=== PATIENT | male | born 1955 | race Caucasian/White ===

== ENCOUNTER 2016-05-18 11:50 | Outpatient (CLI) ==
[2015-05-11 23:10] VITALS: BMI 34.4
[2016-05-18 12:25] LABS: PROTHROMBIN TIME 21.6 SEC (9.3-11.0)
== END 2016-05-18 11:51 | disposition home or self-care (01) ==
LOC: NONPT 11:50
PROVIDERS: ATTEND Family Medicine
DX: Z51.81 Encounter for therapeutic drug level monitoring (principal); Z79.01 Long term (current) use of anticoagulants; Z79.82 Long term (current) use of aspirin; Z79.84 Long term (current) use of oral hypoglycemic drugs
CPT/HCPCS: 85610

== ENCOUNTER 2016-05-25 11:41 | Outpatient (CLI) ==
[2015-05-11 23:10] VITALS: BMI 34.4
[2016-05-25 13:25] LABS: PROTHROMBIN TIME 33.6 SEC (9.3-11.0)
== END 2016-05-25 11:42 | disposition home or self-care (01) ==
LOC: NONPT 11:41
PROVIDERS: ATTEND Family Medicine
DX: Z51.81 Encounter for therapeutic drug level monitoring (principal); Z79.01 Long term (current) use of anticoagulants; Z79.84 Long term (current) use of oral hypoglycemic drugs; Z79.82 Long term (current) use of aspirin
CPT/HCPCS: 85610

== ENCOUNTER 2016-06-07 11:33 | Outpatient (CLI) ==
[2015-05-11 23:10] VITALS: BMI 34.4
[2016-06-07 12:00] LABS: PROTHROMBIN TIME 22.9 SEC (9.3-11.0)
== END 2016-06-07 11:34 | disposition home or self-care (01) ==
LOC: LAB 11:33
PROVIDERS: ATTEND Family Medicine
DX: Z51.81 Encounter for therapeutic drug level monitoring (principal); Z79.01 Long term (current) use of anticoagulants; Z79.84 Long term (current) use of oral hypoglycemic drugs; Z79.82 Long term (current) use of aspirin
CPT/HCPCS: 36415; 85610

== ENCOUNTER 2016-06-21 13:49 | Outpatient (CLI) ==
[2015-05-11 23:10] VITALS: BMI 34.4
[2016-06-21 14:15] LABS: PROTHROMBIN TIME 19.9 SEC (9.3-11.0)
== END 2016-06-21 13:50 | disposition home or self-care (01) ==
LOC: NONPT 13:49
PROVIDERS: ATTEND Family Medicine
DX: Z51.81 Encounter for therapeutic drug level monitoring (principal); Z79.01 Long term (current) use of anticoagulants; Z79.82 Long term (current) use of aspirin; Z79.84 Long term (current) use of oral hypoglycemic drugs
CPT/HCPCS: 85610

== ENCOUNTER 2016-06-28 19:58 | Outpatient (CLI) ==
[2015-05-11 23:10] VITALS: BMI 34.4
[2016-06-28 20:36] LABS: PROTHROMBIN TIME 29.5 SEC (9.3-11.0)
== END 2016-06-28 19:59 | disposition home or self-care (01) ==
LOC: NONPT 19:58
PROVIDERS: ATTEND Family Medicine
DX: Z51.81 Encounter for therapeutic drug level monitoring (principal); E11.621 Type 2 diabetes mellitus with foot ulcer
CPT/HCPCS: 85610

== ENCOUNTER 2016-07-29 13:28 | Outpatient (CLI) ==
[2015-05-11 23:10] VITALS: BMI 34.4
[2016-07-29 14:04] LABS: ALBUMIN 3.1 g/dL (3.4-5.0); ALBUMIN/GLOBULIN RATIO 0.78; ANION GAP 10.6; BILIRUBIN,TOTAL 0.24 mg/dL (0.00-1.20); BUN/CREATININE RATIO 12.74; CREATININE 1.02 mg/dL (0.60-1.10); POTASSIUM 5.6 mmol/L (3.5-5.1); TOTAL PROTEIN 7.1 g/dL (5.8-8.1)
[2016-07-29 14:16] LABS: PROTHROMBIN TIME 32.2 SEC (9.3-11.0)
== END 2016-07-29 13:29 | disposition home or self-care (01) ==
LOC: NONPT 13:28
PROVIDERS: ATTEND Family Medicine
DX: E11.51 Type 2 diabetes mellitus with diabetic peripheral angiopathy without gangrene (principal); J44.9 Chronic obstructive pulmonary disease, unspecified; I10 Essential (primary) hypertension; F17.210 Nicotine dependence, cigarettes, uncomplicated; Z91.81 History of falling; Z79.84 Long term (current) use of oral hypoglycemic drugs; E11.621 Type 2 diabetes mellitus with foot ulcer; L97.413 Non-pressure chronic ulcer of right heel and midfoot with necrosis of muscle
CPT/HCPCS: 80053; 83036; 85610

== ENCOUNTER 2016-08-05 12:10 | Outpatient (CLI) ==
[2015-05-11 23:10] VITALS: BMI 34.4
[2016-08-05 12:33] LABS: ANION GAP 11.9; BUN/CREATININE RATIO 8.47; CREATININE 1.18 mg/dL (0.60-1.10); POTASSIUM 4.9 mmol/L (3.5-5.1)
[2016-08-05 12:35] LABS: PROTHROMBIN TIME 23.6 SEC (9.3-11.0)
== END 2016-08-05 12:11 | disposition home or self-care (01) ==
LOC: LAB 12:10
PROVIDERS: ATTEND Family Medicine
DX: Z79.84 Long term (current) use of oral hypoglycemic drugs (principal); Z79.01 Long term (current) use of anticoagulants; Z79.82 Long term (current) use of aspirin; E11.621 Type 2 diabetes mellitus with foot ulcer; E11.51 Type 2 diabetes mellitus with diabetic peripheral angiopathy without gangrene; J44.9 Chronic obstructive pulmonary disease, unspecified
CPT/HCPCS: 36415; 80048; 85610

== ENCOUNTER 2016-08-12 16:08 | Outpatient (CLI) ==
[2015-05-11 23:10] VITALS: BMI 34.4
[2016-08-12 16:30] LABS: ANION GAP 12.4; BUN/CREATININE RATIO 13.15; CALCIUM 8.2 mg/dL (8.2-10.2); CREATININE 1.52 mg/dL (0.60-1.10); POTASSIUM 5.4 mmol/L (3.5-5.1)
== END 2016-08-12 16:09 | disposition home or self-care (01) ==
LOC: NONPT 16:08
PROVIDERS: ATTEND Family Medicine
DX: Z51.81 Encounter for therapeutic drug level monitoring (principal); Z79.01 Long term (current) use of anticoagulants; Z79.84 Long term (current) use of oral hypoglycemic drugs; Z79.82 Long term (current) use of aspirin; E11.621 Type 2 diabetes mellitus with foot ulcer; E11.51 Type 2 diabetes mellitus with diabetic peripheral angiopathy without gangrene
CPT/HCPCS: 80048

== ENCOUNTER 2016-08-23 14:19 | Outpatient (CLI) ==
[2015-05-11 23:10] VITALS: BMI 34.4
[2016-08-23 14:52] LABS: PROTHROMBIN TIME 31.7 SEC (9.3-11.0)
== END 2016-08-23 14:20 | disposition home or self-care (01) ==
LOC: NONPT 14:19
PROVIDERS: ATTEND Family Medicine
DX: Z51.81 Encounter for therapeutic drug level monitoring (principal); Z79.01 Long term (current) use of anticoagulants; E11.621 Type 2 diabetes mellitus with foot ulcer; L97.413 Non-pressure chronic ulcer of right heel and midfoot with necrosis of muscle; E11.51 Type 2 diabetes mellitus with diabetic peripheral angiopathy without gangrene
CPT/HCPCS: 85610

== ENCOUNTER 2016-08-25 17:32 | Outpatient (CLI) ==
[2015-05-11 23:10] VITALS: BMI 34.4
[2016-08-25 18:25] LABS: PROTHROMBIN TIME 19.7 SEC (9.3-11.0)
[2016-08-25 18:30] LABS: ANION GAP 13.2; BUN/CREATININE RATIO 11.71; CALCIUM 7.7 mg/dL (8.2-10.2); CREATININE 1.28 mg/dL (0.60-1.10); POTASSIUM 5.2 mmol/L (3.5-5.1)
== END 2016-08-25 17:33 | disposition home or self-care (01) ==
LOC: NONPT 17:32
PROVIDERS: ATTEND Family Medicine
DX: Z51.81 Encounter for therapeutic drug level monitoring (principal); Z79.01 Long term (current) use of anticoagulants; I10 Essential (primary) hypertension
CPT/HCPCS: 80048; 85610

== ENCOUNTER 2016-09-03 15:24 | Outpatient (CLI) ==
[2015-05-11 23:10] VITALS: BMI 34.4
[2016-09-03 15:50] LABS: ANION GAP 12.8; BUN/CREATININE RATIO 12.35; CALCIUM 8.1 mg/dL (8.2-10.2); CREATININE 1.78 mg/dL (0.60-1.10); POTASSIUM 5.8 mmol/L (3.5-5.1)
== END 2016-09-03 15:25 | disposition home or self-care (01) ==
LOC: NONPT 15:24
PROVIDERS: ATTEND Family Medicine
DX: I10 Essential (primary) hypertension (principal)
CPT/HCPCS: 80048

== ENCOUNTER 2016-09-24 13:11 | Outpatient (CLI) | payer OTHER ==
[2015-05-11 23:10] VITALS: BMI 34.4
[2016-09-24 14:09] LABS: PROTHROMBIN TIME 13.2 SEC (9.3-11.0)
== END 2016-09-24 13:12 | disposition home or self-care (01) ==
LOC: NONPT 13:11
PROVIDERS: ATTEND Family Medicine
DX: Z51.81 Encounter for therapeutic drug level monitoring (principal); Z79.01 Long term (current) use of anticoagulants; I10 Essential (primary) hypertension
CPT/HCPCS: 85610

== ENCOUNTER 2016-11-27 17:04 | Outpatient (CLI) ==
[2015-05-11 23:10] VITALS: BMI 34.4
[2016-11-27 18:24] LABS: IMMATURE RETIC FRACTION 29.6; RETICULOCYTE % 1.6 %
[2016-11-27 19:15] LABS: FERRITIN 14.93 ng/mL (21.81-274.66)
== END 2016-11-27 17:05 | disposition home or self-care (01) ==
LOC: NONPT 17:04
PROVIDERS: ATTEND Family Medicine
DX: L97.413 Non-pressure chronic ulcer of right heel and midfoot with necrosis of muscle (principal); E11.51 Type 2 diabetes mellitus with diabetic peripheral angiopathy without gangrene
CPT/HCPCS: 82607; 82728; 82746; 83540; 83550; 85045

== ENCOUNTER 2016-12-16 11:12 | Outpatient (CLI) ==
[2015-05-11 23:10] VITALS: BMI 34.4
== END 2016-12-16 11:13 | disposition home or self-care (01) ==
LOC: NONPT 11:12
PROVIDERS: ATTEND Family Medicine
DX: Z51.81 Encounter for therapeutic drug level monitoring (principal); Z79.01 Long term (current) use of anticoagulants; L97.413 Non-pressure chronic ulcer of right heel and midfoot with necrosis of muscle; I10 Essential (primary) hypertension
CPT/HCPCS: 85610

== ENCOUNTER 2016-12-30 12:55 | Outpatient (CLI) ==
[2015-05-11 23:10] VITALS: BMI 34.4
[2016-12-30 13:01] LABS: HEMATOCRIT 37.8 % (42.0-52.0); HEMOGLOBIN 12.2 g/dl (14.0-18.0)
== END 2016-12-30 12:56 | disposition home or self-care (01) ==
LOC: NONPT 12:55
PROVIDERS: ATTEND Family Medicine
DX: E11.621 Type 2 diabetes mellitus with foot ulcer (principal); E11.51 Type 2 diabetes mellitus with diabetic peripheral angiopathy without gangrene; J44.9 Chronic obstructive pulmonary disease, unspecified; I10 Essential (primary) hypertension; Z79.84 Long term (current) use of oral hypoglycemic drugs; Z79.82 Long term (current) use of aspirin; Z79.891 Long term (current) use of opiate analgesic
CPT/HCPCS: 83540; 85014; 85018

== ENCOUNTER 2017-01-24 15:28 | Outpatient (CLI) ==
[2015-05-11 23:10] VITALS: BMI 34.4
[2017-01-24 15:35] LABS: BASOPHILS % (AUTO) 0.5 % (0.0-3.0); EOSINOPHILS # (AUTO) 0.2 K/ul (0.0-0.7); EOSINOPHILS % (AUTO) 2.2 % (0.0-7.0); HEMATOCRIT 41.6 % (42.0-52.0); HEMOGLOBIN 13.3 g/dl (14.0-18.0); IMMATURE GRANULOCYTE % (AUTO) 0.3 % (0.0-5.0); LYMPHOCYTES # (AUTO) 2.1 K/uL (0.60-3.4); LYMPHOCYTES % (AUTO) 28.8 (10.0-50.0); MEAN CORPUSCULAR HEMOGLOBIN 28.7 pg (27.0-31.0); MEAN CORPUSCULAR VOLUME 89.7 fl (80.0-94.0); MONOCYTES # (AUTO) 0.6 K/uL (0.4-2.0); MONOCYTES % (AUTO) 8.4 (0-10); NEUTROPHILS # (AUTO) 4.4 K/ul (2.0-6.9); NEUTROPHILS % (AUTO) 59.8; PLATELET COUNT 155 10^3/uL (140-440); RED BLOOD COUNT 4.64 10^6/ul (4.70-6.10); WHITE BLOOD COUNT 7.37 K/ul (4.2-10.2)
[2017-01-24 15:47] LABS: PROTHROMBIN TIME 15.3 SEC (9.3-11.0)
== END 2017-01-24 15:29 | disposition home or self-care (01) ==
LOC: NONPT 15:28
PROVIDERS: ATTEND Family Medicine
DX: Z51.81 Encounter for therapeutic drug level monitoring (principal); Z79.01 Long term (current) use of anticoagulants; I10 Essential (primary) hypertension; D64.9 Anemia, unspecified
CPT/HCPCS: 83540; 85025; 85610

== ENCOUNTER 2017-01-24 15:35 | Outpatient (CLI) ==
[2015-05-11 23:10] VITALS: BMI 34.4
== END 2017-01-24 15:36 | disposition home or self-care (01) ==
LOC: NONPT 15:35
PROVIDERS: ATTEND Family Medicine
DX: Z51.81 Encounter for therapeutic drug level monitoring (principal); Z79.01 Long term (current) use of anticoagulants

== ENCOUNTER 2017-01-26 17:28 | Outpatient (CLI) | payer OTHER ==
[2015-05-11 23:10] VITALS: BMI 34.4
[2017-01-26 17:49] LABS: PROTHROMBIN TIME 18.9 SEC (9.3-11.0)
== END 2017-01-26 17:29 | disposition home or self-care (01) ==
LOC: NONPT 17:28
PROVIDERS: ATTEND Family Medicine
DX: Z51.81 Encounter for therapeutic drug level monitoring (principal); Z79.01 Long term (current) use of anticoagulants
CPT/HCPCS: 85610

== ENCOUNTER 2017-02-03 13:32 | Outpatient (CLI) ==
[2015-05-11 23:10] VITALS: BMI 34.4
[2017-02-03 14:08] LABS: PROTHROMBIN TIME 20.5 SEC (9.3-11.0)
== END 2017-02-03 13:33 | disposition home or self-care (01) ==
LOC: NONPT 13:32
PROVIDERS: ATTEND Family Medicine
DX: Z51.81 Encounter for therapeutic drug level monitoring (principal); Z79.01 Long term (current) use of anticoagulants
CPT/HCPCS: 85610

== ENCOUNTER 2017-02-17 16:09 | Outpatient (CLI) ==
[2015-05-11 23:10] VITALS: BMI 34.4
[2017-02-17 16:47] LABS: PROTHROMBIN TIME 22.9 SEC (9.3-11.0)
== END 2017-02-17 16:10 | disposition home or self-care (01) ==
LOC: NONPT 16:09
PROVIDERS: ATTEND Family Medicine
DX: Z51.81 Encounter for therapeutic drug level monitoring (principal); Z79.01 Long term (current) use of anticoagulants; E11.621 Type 2 diabetes mellitus with foot ulcer; I10 Essential (primary) hypertension; E11.51 Type 2 diabetes mellitus with diabetic peripheral angiopathy without gangrene
CPT/HCPCS: 85610

== ENCOUNTER 2017-04-29 15:57 | Outpatient (CLI) ==
[2017-03-21 15:59] VITALS: BMI 25.8
[2017-04-29 16:09] LABS: BASOPHILS % (AUTO) 0.4 % (0.0-3.0); EOSINOPHILS # (AUTO) 0.2 K/ul (0.0-0.7); EOSINOPHILS % (AUTO) 2.2 % (0.0-7.0); HEMATOCRIT 42.8 % (42.0-52.0); HEMOGLOBIN 15.3 g/dl (14.0-18.0); IMMATURE GRANULOCYTE % (AUTO) 0.6 % (0.0-5.0); LYMPHOCYTES # (AUTO) 1.8 K/uL (0.60-3.4); LYMPHOCYTES % (AUTO) 18.5 (10.0-50.0); MEAN CORPUSCULAR HEMOGLOBIN 30.7 pg (27.0-31.0); MEAN CORPUSCULAR HGB CONC 35.7 (31.8-35.4); MEAN CORPUSCULAR VOLUME 85.9 fl (80.0-94.0); MONOCYTES # (AUTO) 0.7 K/uL (0.4-2.0); MONOCYTES % (AUTO) 6.9 (0-10); NEUTROPHILS # (AUTO) 7.1 K/ul (2.0-6.9); NEUTROPHILS % (AUTO) 71.4; PLATELET COUNT 189 10^3/uL (140-440); RED BLOOD COUNT 4.98 10^6/ul (4.70-6.10); WHITE BLOOD COUNT 9.93 K/ul (4.2-10.2)
[2017-04-29 16:11] LABS: BILIRUBIN,URINE Negative (NEGATIVE); KETONES,URINE Negative (NEGATIVE); LEUKOCYTE ESTERASE ,URINE Negative (NEGATIVE); NITRITE,URINE Negative (NEGATIVE); PROTEIN,URINE Negative (NEGATIVE); URINE, BLOOD Negative (NEGATIVE)
[2017-04-29 16:28] LABS: ANION GAP 17.3; BUN/CREATININE RATIO 15.94; CALCIUM 9.4 mg/dL (8.2-10.2); CREATININE 1.38 mg/dL (0.60-1.10)
[2017-04-29 16:38] LABS: POTASSIUM 8.3 mmol/L (3.5-5.1)
[2017-04-29 16:58] LABS: ADD URINE MICROSCOPIC NO
== END 2017-04-29 15:58 | disposition home or self-care (01) ==
LOC: NONPT 15:57
PROVIDERS: ATTEND Family Medicine
DX: E11.621 Type 2 diabetes mellitus with foot ulcer (principal); L97.413 Non-pressure chronic ulcer of right heel and midfoot with necrosis of muscle
CPT/HCPCS: 80048; 81001; 85025

== ENCOUNTER 2017-05-02 16:20 | Outpatient (CLI) ==
[2017-03-21 15:59] VITALS: BMI 25.8
[2017-05-02 16:30] LABS: BASOPHILS % (AUTO) 0.5 % (0.0-3.0); EOSINOPHILS # (AUTO) 0.3 K/ul (0.0-0.7); EOSINOPHILS % (AUTO) 3.2 % (0.0-7.0); HEMATOCRIT 40.3 % (42.0-52.0); HEMOGLOBIN 14.1 g/dl (14.0-18.0); IMMATURE GRANULOCYTE % (AUTO) 0.3 % (0.0-5.0); LYMPHOCYTES # (AUTO) 1.8 K/uL (0.60-3.4); LYMPHOCYTES % (AUTO) 21.1 (10.0-50.0); MEAN CORPUSCULAR HEMOGLOBIN 30.6 pg (27.0-31.0); MEAN CORPUSCULAR VOLUME 87.4 fl (80.0-94.0); MONOCYTES # (AUTO) 0.6 K/uL (0.4-2.0); MONOCYTES % (AUTO) 7.1 (0-10); NEUTROPHILS # (AUTO) 5.9 K/ul (2.0-6.9); NEUTROPHILS % (AUTO) 67.8; PLATELET COUNT 173 10^3/uL (140-440); RED BLOOD COUNT 4.61 10^6/ul (4.70-6.10); WHITE BLOOD COUNT 8.72 K/ul (4.2-10.2)
[2017-05-02 16:43] LABS: ANION GAP 12.4; BUN/CREATININE RATIO 18.03; CALCIUM 9.1 mg/dL (8.2-10.2); CREATININE 1.22 mg/dL (0.60-1.10)
[2017-05-02 16:45] LABS: POTASSIUM 8.4 mmol/L (3.5-5.1)
[2017-05-03 10:32] VITALS: BMI 33.0
== END 2017-05-02 16:21 | disposition home or self-care (01) ==
LOC: NONPT 16:20
PROVIDERS: ATTEND Family Medicine
DX: E87.5 Hyperkalemia (principal); I10 Essential (primary) hypertension; F05 Delirium due to known physiological condition; E11.621 Type 2 diabetes mellitus with foot ulcer; J44.9 Chronic obstructive pulmonary disease, unspecified; F31.9 Bipolar disorder, unspecified; Z91.81 History of falling
CPT/HCPCS: 80048; 85025

== ENCOUNTER 2017-05-03 09:41 | Outpatient (CLI) ==
[2017-03-21 15:59] VITALS: BMI 25.8
[2017-05-03 10:15] LABS: ANION GAP 14.7; BUN/CREATININE RATIO 17.24; CALCIUM 9.2 mg/dL (8.2-10.2); CREATININE 1.16 mg/dL (0.60-1.10)
[2017-05-03 10:21] LABS: POTASSIUM 8.7 mmol/L (3.5-5.1)
[2017-05-03 10:32] VITALS: BMI 33.0
== END 2017-05-03 09:42 | disposition home or self-care (01) ==
LOC: LAB 09:41
PROVIDERS: ATTEND Family Medicine
DX: E87.5 Hyperkalemia (principal)
CPT/HCPCS: 36415; 80048

== ENCOUNTER 2017-05-03 10:28 | Inpatient (IN) | payer OTHER ==
[2017-05-03 10:32] VITALS: BMI 33.0
[2017-05-03 10:59] LABS: BASOPHILS % (AUTO) 0.4 % (0.0-3.0); EOSINOPHILS # (AUTO) 0.3 K/ul (0.0-0.7); EOSINOPHILS % (AUTO) 3.1 % (0.0-7.0); HEMATOCRIT 41.1 % (42.0-52.0); HEMOGLOBIN 14.4 g/dl (14.0-18.0); IMMATURE GRANULOCYTE % (AUTO) 0.4 % (0.0-5.0); LYMPHOCYTES # (AUTO) 1.6 K/uL (0.60-3.4); LYMPHOCYTES % (AUTO) 14.3 (10.0-50.0); MEAN CORPUSCULAR HEMOGLOBIN 30.4 pg (27.0-31.0); MEAN CORPUSCULAR VOLUME 86.7 fl (80.0-94.0); MONOCYTES # (AUTO) 0.7 K/uL (0.4-2.0); MONOCYTES % (AUTO) 6.4 (0-10); NEUTROPHILS # (AUTO) 8.3 K/ul (2.0-6.9); NEUTROPHILS % (AUTO) 75.4; PLATELET COUNT 176 10^3/uL (140-440); RED BLOOD COUNT 4.74 10^6/ul (4.70-6.10); WHITE BLOOD COUNT 10.96 K/ul (4.2-10.2)
[2017-05-03] MEDS ORDERED: [UNRECOGNIZED DRUG - OTHER] IV SCH (11:00)
[2017-05-03] MEDS ORDERED: SODIUM CHLORIDE IV SCH (11:00)
[2017-05-03] MEDS ORDERED: DEXTROSE 50% IV SCH (11:00)
[2017-05-03] MEDS ORDERED: DEXTROSE 5%-1/2NS IV SOLUTION 1,000 ML IV STA (11:21)
--- NOTE | 2017-05-03 11:22 | ED.PDOC ---
General ED Provider: Dr. SHANITA VELASQUEZ JR Chief Complaint: Abnormal Labs Stated Complaint: sent to er for abnormal labs. states potassium is 8. drawn yesterday and on tuesday. pt states feels weak [ End ]96.7 97 20 92% 130/77 Time Seen by Physician: 10:45 Mode of Arrival: Wheelchair Information Source: Patient Exam Limitations: Clinical condition Primary Care Provider: SUKHJINDER MCCULLOUGH Seen Within Last 72 Hours for Same Complaint By: PCP Nursing and Triage Documentation Reviewed and Agree: No Reviewed sepsis parameters & appropriate labs ordered?: Yes System Inflammatory Response Syndrome: Temp 96.8F or Lower, Pulse >90 BPM Sepsis Protocol: For patient's 13 years and over: Temp is 96.8 and below OR 101 and greater Pulse >90 BPM Resp >20/minute Acutely Altered Mental Status Are patient's symptoms suggestive of a new infection, such as: -Pneumonia -Skin, Soft Tissue -Endocarditis -UTI -Bone, Joint Infection -Implantable Device -Acute Abdominal Infection -Wound Infection -Meningitis -Blood Stream Catheter Infection -Unknown System Inflammatory Response Syndrome: Not Applicable Review of Systems - Review Of Systems Constitutional: Reports: Malaise, Weakness Eyes: Reports: No symptoms Ears, Nose, Mouth, Throat: Reports: No symptoms Respiratory: Reports: No symptoms Cardiac: Reports: No symptoms GI: Reports: No symptoms : Reports: No symptoms Musculoskeletal: Reports: Other Skin: Reports: No symptoms Neurological: Reports: Weakness Endocrine: Reports: No symptoms Hematologic/Lymphatic: Reports: No symptoms All Other Systems: Other Past Medical History - Past Medical History Previously Healthy: No Endocrine: Reports: DM 2, Dyslipidemia Cardiovascular: Reports: Hypertension Respiratory: Reports: None Hematological: Reports: Anemia Gastrointestinal: Reports: GERD Genitourinary: Reports: None Neuro/Psych: Reports: Anxiety, Depression Musculoskeletal: Reports: Arthritis, Back Pain, Joint Pain Cancer: Reports: None Other Pertinent Past Medical History: fibromyalgia, PTSD, neuropothy - Surgical History General Surgical History: Reports: Orthopedic (Lleft below the knee amputation, Right partial foot amputation ), Other (rectal fissure), Unknown - Family History Family History: Reports: None - Social History Smoking Status: Current every day smoker, Heavy tobacco smoker Hx Substance Use: No Alcohol Screening: None Physical Exam - Physical Exam Appearance: Ill-appearing Ill-appearing: Moderate Neck: Supple Respiratory: Airway patent GI/: Soft, Nontender Musculoskeletal: Normal strength, ROM intact, No edema, No calf tenderness ( note bilateral amputations left BKA right partial fool) Skin: Warm, Dry, Normal color Neurological: Sensation intact, Motor intact, Reflexes intact, Cranial nerves intact, Alert, Oriented Psychiatric: Anxious Interpretation - Radiology Interpretation Radiology Interpretation By: Radiologist Radiology Results: No acute changes Exam Interpreted: CXR Physician Notification - Case Discussed Physician Notified: Gold Time of Notification: 12:50 (dr mccullough called) Critical Care Note - Critical Care Note Total Time (mins): 0 Course - Course Hematology/Chemistry: 05/03/17 10:55 05/03/17 10:55 Orders, Labs, Meds: Lab Review 05/03/17 05/03/17 05/03/17 10:55 10:55 10:55 WBC 10.96 H RBC 4.74 Hgb 14.4 Hct 41.1 L MCV 86.7 MCH 30.4 MCHC 35.0 RDW Coeff of Sj 12.9 Plt Count 176 Immature Gran % (Auto) 0.4 Neut % (Auto) 75.4 Lymph % (Auto) 14.3 Grand % (Auto) 6.4 Eos % (Auto) 3.1 Baso % (Auto) 0.4 Immature Gran # (Auto) 0.0 Neut # 8.3 H Lymph # 1.6 Grand # 0.7 Eos # 0.3 Baso # 0.0 PT 12.6 H INR 1.25 Sodium 125 L Potassium 8.7 H* Chloride 99 Carbon Dioxide 22 L Anion Gap 12.7 BUN 19 H Creatinine 1.14 H Estimated GFR (MDRD) 65.00 BUN/Creatinine Ratio 16.66 Glucose 113 Lactic Acid Calcium 9.4 Total Bilirubin 0.6 AST 21 ALT 22 Alkaline Phosphatase 88 Total Protein 7.6 Albumin 3.7 Globulin 3.9 Albumin/Globulin Ratio 0.95 Procalcitonin Urine Color Urine Clarity Urine pH Ur Specific [place] Urine Protein Urine Glucose (UA) Urine Ketones Urine Blood Urine Nitrite Urine Bilirubin Urine Urobilinogen Ur Leukocyte Esterase 05/03/17 05/03/17 05/03/17 11:20 12:20 12:30 WBC RBC Hgb Hct MCV MCH MCHC RDW Coeff of Sj Plt Count Immature Gran % (Auto) Neut % (Auto) Lymph % (Auto) Grand % (Auto) Eos % (Auto) Baso % (Auto) Immature Gran # (Auto) Neut # Lymph # Grand # Eos # Baso # PT INR Sodium Potassium Chloride Carbon Dioxide Anion Gap BUN Creatinine Estimated GFR (MDRD) BUN/Creatinine Ratio Glucose Lactic Acid 5.4 Calcium Total Bilirubin AST ALT Alkaline Phosphatase Total Protein Albumin Globulin Albumin/Globulin Ratio Procalcitonin < 0.05 Urine Color Yellow Urine Clarity Clear Urine pH 5.0 Ur Specific [place] <=1.005 Urine Protein Negative Urine Glucose (UA) Negative Urine Ketones Negative Urine Blood Negative Urine Nitrite Negative Urine Bilirubin Negative Urine Urobilinogen 0.2 Ur Leukocyte Esterase Negative Orders Category Date Time Status EKG-(ED ONLY) Stat CARDIO 05/03/17 10:45 Completed IV ACCESS ONCE CARE 05/03/17 11:20 Active ED APPLY O2 .ONCE EMERGENCY 05/03/17 10:45 Active ED EAR MACHINE OPERATOR APPLIED .ONCE EMERGENCY 05/03/17 11:20 Active ED IV/MEDIPORT/POWERPORT .ONCE EMERGENCY 05/03/17 10:45 Active ED VITAL SIGNS Q1HR EMERGENCY 05/03/17 11:20 Completed BLOOD CULTURE (ED ONLY) Stat LAB 05/03/17 12:20 Received CBC W/ AUTO DIFF Stat LAB 05/03/17 10:55 Completed COMPREHENSIVE METABOLIC PANEL Stat LAB 05/03/17 10:55 Completed LACTIC ACID Stat LAB 05/03/17 12:20 Completed PROCALCITONIN Stat LAB 05/03/17 11:20 Completed URINALYSIS C & S IF INDICATED Stat LAB 05/03/17 12:30 Completed 0.9 % Sodium Chloride [Saline Flush] MEDS 05/03/17 10:45 Active 1 syr IVF PRN PRN Dextrose 5 %-0.45 % NaCl [Dextrose 5%-1/2Ns IV Solution MEDS 05/03/17 11:21 Active ] 1,000 ml IV 100 mls/hr CHEST, 1V AP ONLY Stat RADS 05/03/17 10:45 Completed Medications Generic Name Dose Route Start Last Admin Trade Name Freq PRN Reason Stop Dose Admin Acetaminophen 650 mg 05/03/17 13:43 Tylenol PO Q4H PRN Mild Pain Acetaminophen/Hydrocodone Bitart 1 tab 05/03/17 17:00 Siren 10-325 PO QID [facility] Alprazolam 1 mg 05/03/17 17:00 Xanax PO QID [facility] Aspirin 325 mg 05/04/17 08:00 Aspirin Ec PO DAILYWM [facility] Diphenhydramine HCl 25 mg 05/03/17 13:49 Benadryl PO Q8H PRN Allergy Symptoms Dextrose/Sodium Chloride 1,000 mls @ 100 mls/hr 05/03/17 11:21 05/03/17 11:24 Dextrose 5%-1/2ns Iv Solution IV 05/03/17 21:20 100 mls/hr .Q10H STA Administration Sodium Chloride 1,000 mls @ 75 mls/hr 05/03/17 14:00 Sodium Chloride IV .[id number] [facility] Lovastatin 40 mg 05/03/17 21:00 Mevacor PO BEDTIME [facility] Metformin HCl 500 mg 05/03/17 17:30 Glucophage PO BIDWM [facility] Non-Formulary Medication 60 mg 05/03/17 21:00 Duloxetine Hcl [Cymbalta] PO BID [facility] Pantoprazole Sodium 40 mg 05/04/17 06:30 Protonix PO QDAC [facility] Polysaccharide Iron Complex 150 mg 05/03/17 21:00 Niferex 150 PO BID [facility] Sodium Chloride 1 syr 05/03/17 10:45 Saline Flush IVF PRN PRN To flush IV Warfarin Sodium 4 mg 05/04/17 17:00 Coumadin PO QPM [facility] Vital Signs: Temp Pulse Resp BP Pulse Ox 05/03/17 12:12 97.3 F L 83 22 05/03/17 10:28 96.7 F L 97 H 20 130/77 92 L Departure - Departure Time of Disposition: 12:55 Disposition: [facility]SF [facility]ORT[facility]TRM [facility] Discharge Problem: Hyperkalemia, diminished renal excretion Condition: Fair Pt referred to PMD for follow-up: Yes (dr mccullough) Allergies/Adverse Reactions: Allergies cefprozil Adverse Reaction (Verified 05/03/17 10:33) Cephalosporins Adverse Reaction (Verified 05/03/17 10:33) rifampin Adverse Reaction (Verified 05/03/17 10:33) rifamycin Adverse Reaction (Verified 05/03/17 10:33) Home Medications: Ambulatory Orders Aspirin [Aspirin EC] 325 mg PO DAILY 09/09/14 Diphenhydramine HCl [Benadryl] 25 mg PO Q8H PRN 09/09/14 Duloxetine HCl [Cymbalta] 60 mg PO BID 09/09/14 Hydrocodone/Acetaminophen [Siren 10-325 Tablet] 1 each PO QID 09/09/14 Iron Polysaccharide Complex [Ferrex 150] 150 mg PO BID 09/09/14 Lovastatin [Mevacor] 40 mg PO BEDTIME 09/09/14 Metformin HCl [Glucophage] 500 mg PO BID 09/09/14 Warfarin Sodium [Coumadin] 4 mg PO DAILY 09/09/14 Alprazolam [Xanax] 1 mg PO QID 03/21/17 Pantoprazole Sodium [Protonix] 40 mg PO QDAC 03/21/17
--- NOTE | 2017-05-03 11:31 | DI ---
EXAM: Chest one view, frontal view only. HISTORY: Shortness of breath, weakness. COMPARISON: None available. FINDINGS: The heart size is normal. There is no pulmonary vascular congestion. The lungs are clear . No pleural effusion or pneumothorax is seen. No acute osseous abnormality is identified. IMPRESSION: No acute cardiopulmonary process.
[2017-05-03 12:00] LABS: ALBUMIN 3.7 g/dL (3.4-5.0); ALBUMIN/GLOBULIN RATIO 0.95; ANION GAP 12.7; BILIRUBIN,TOTAL 0.6 mg/dL (0.00-1.20); BUN/CREATININE RATIO 16.66; CALCIUM 9.4 mg/dL (8.2-10.2); CREATININE 1.14 mg/dL (0.60-1.10); TOTAL PROTEIN 7.6 g/dL (5.8-8.1)
[2017-05-03 12:06] LABS: POTASSIUM 8.7 mmol/L (3.5-5.1)
[2017-05-03 12:37] LABS: ADD URINE MICROSCOPIC NO; BILIRUBIN,URINE Negative (NEGATIVE); KETONES,URINE Negative (NEGATIVE); LEUKOCYTE ESTERASE ,URINE Negative (NEGATIVE); NITRITE,URINE Negative (NEGATIVE); PROTEIN,URINE Negative (NEGATIVE); URINE, BLOOD Negative (NEGATIVE)
[2017-05-03] MEDS ORDERED: TYLENOL PO PRN (13:43)
[2017-05-03] MEDS ORDERED: BENADRYL PO PRN (13:49)
[2017-05-03 14:10] LABS: PROTHROMBIN TIME 12.6 SEC (9.3-11.0)
[2017-05-03] MEDS ORDERED: COUMADIN PO ONE (17:00)
[2017-05-03] MEDS ORDERED: NON-FORMULARY MEDICATION (Alprazolam [Xanax] 1 MG) PO SCH ×22 (17:00)
[2017-05-03] MEDS ORDERED: COUMADIN ONE (17:53)
[2017-05-03] MEDS: XANAX PO SCH ×2 (18:00→20:44)
[2017-05-03] MEDS: GLUCOPHAGE PO SCH (18:00)
[2017-05-03] MEDS: NORCO 10-325 PO SCH ×2 (18:00→20:43)
[2017-05-03] MEDS ORDERED: COUMADIN PO SCH (18:27)
[2017-05-03] MEDS ORDERED: CYMBALTA ONE (20:23)
[2017-05-03] MEDS: MEVACOR PO SCH (20:43)
[2017-05-03] MEDS: NON-FORMULARY MEDICATION (Duloxetine Hcl [Cymbalta] 60 MG) PO SCH ×22 (20:44)
[2017-05-03] MEDS: NIFEREX 150 PO SCH (20:45)
[2017-05-03] MEDS ORDERED: LOVENOX SUBCUT SCH ×2 (21:00)
[2017-05-03] MEDS: SODIUM CHLORIDE 1,000 ML IV SCH (21:37)
[2017-05-04 05:12] LABS: BASOPHILS # (AUTO) 0.1 K/uL (0-0.2); BASOPHILS % (AUTO) 0.7 % (0.0-3.0); EOSINOPHILS # (AUTO) 0.3 K/ul (0.0-0.7); EOSINOPHILS % (AUTO) 3.9 % (0.0-7.0); HEMOGLOBIN 12.9 g/dl (14.0-18.0); IMMATURE GRANULOCYTE % (AUTO) 0.3 % (0.0-5.0); LYMPHOCYTES # (AUTO) 1.9 K/uL (0.60-3.4); LYMPHOCYTES % (AUTO) 27.2 (10.0-50.0); MEAN CORPUSCULAR HGB CONC 33.9 (31.8-35.4); MEAN CORPUSCULAR VOLUME 88.4 fl (80.0-94.0); MONOCYTES # (AUTO) 0.6 K/uL (0.4-2.0); MONOCYTES % (AUTO) 8.6 (0-10); NEUTROPHILS # (AUTO) 4.2 K/ul (2.0-6.9); NEUTROPHILS % (AUTO) 59.3; PLATELET COUNT 148 10^3/uL (140-440); WHITE BLOOD COUNT 7.09 K/ul (4.2-10.2)
[2017-05-04 05:32] LABS: ALBUMIN 3.3 g/dL (3.4-5.0); ANION GAP 11.8; BILIRUBIN,TOTAL 0.5 mg/dL (0.00-1.20); BUN/CREATININE RATIO 15.46; CALCIUM 8.7 mg/dL (8.2-10.2); CREATININE 0.97 mg/dL (0.60-1.10); TOTAL PROTEIN 6.6 g/dL (5.8-8.1)
[2017-05-04 05:35] LABS: POTASSIUM 7.8 mmol/L (3.5-5.1)
[2017-05-04] MEDS: PROTONIX PO SCH (05:37)
[2017-05-04] MEDS: SODIUM CHLORIDE 1,000 ML IV SCH ×3 (06:15→23:49)
[2017-05-04] MEDS ORDERED: ASPIRIN EC PO SCH (08:00)
[2017-05-04] MEDS: GLUCOPHAGE PO SCH ×2 (10:20→17:19)
[2017-05-04] MEDS: XANAX PO SCH ×3 (10:20→21:20)
[2017-05-04] MEDS: NORCO 10-325 PO SCH ×2 (10:20→14:45)
[2017-05-04] MEDS: NIFEREX 150 PO SCH ×2 (10:20→21:20)
[2017-05-04] MEDS ORDERED: KAYEXALATE SUSP PO STA (15:49)
[2017-05-04] MEDS: NON-FORMULARY MEDICATION (Duloxetine Hcl [Cymbalta] 60 MG) PO SCH ×22 (15:52)
[2017-05-04] MEDS ORDERED: NORCO 5-325 PO PRN (16:00)
[2017-05-04] MEDS ORDERED: COUMADIN PO SCH ×2 (17:00)
[2017-05-04] MEDS: LOVENOX SUBCUT SCH (21:20)
[2017-05-04] MEDS: MEVACOR PO SCH (21:20)
[2017-05-05 04:16] LABS: BASOPHILS % (AUTO) 0.7 % (0.0-3.0); EOSINOPHILS # (AUTO) 0.2 K/ul (0.0-0.7); EOSINOPHILS % (AUTO) 3.8 % (0.0-7.0); HEMATOCRIT 35.1 % (42.0-52.0); HEMOGLOBIN 11.9 g/dl (14.0-18.0); IMMATURE GRANULOCYTE % (AUTO) 0.2 % (0.0-5.0); LYMPHOCYTES # (AUTO) 1.8 K/uL (0.60-3.4); LYMPHOCYTES % (AUTO) 29.3 (10.0-50.0); MEAN CORPUSCULAR HEMOGLOBIN 29.9 pg (27.0-31.0); MEAN CORPUSCULAR HGB CONC 33.9 (31.8-35.4); MEAN CORPUSCULAR VOLUME 88.2 fl (80.0-94.0); MONOCYTES # (AUTO) 0.5 K/uL (0.4-2.0); MONOCYTES % (AUTO) 8.4 (0-10); NEUTROPHILS # (AUTO) 3.5 K/ul (2.0-6.9); NEUTROPHILS % (AUTO) 57.6; PLATELET COUNT 126 10^3/uL (140-440); RED BLOOD COUNT 3.98 10^6/ul (4.70-6.10)
[2017-05-05 04:27] LABS: PROTHROMBIN TIME 14.2 SEC (9.3-11.0)
[2017-05-05 04:37] LABS: ALBUMIN 3.1 g/dL (3.4-5.0); ALBUMIN/GLOBULIN RATIO 1.07; BILIRUBIN,TOTAL 0.4 mg/dL (0.00-1.20); BUN/CREATININE RATIO 15.05; CALCIUM 8.3 mg/dL (8.2-10.2); CREATININE 0.93 mg/dL (0.60-1.10)
[2017-05-05] MEDS: PROTONIX PO SCH (06:05)
[2017-05-05] MEDS: XANAX PO SCH (08:32)
[2017-05-05] MEDS: GLUCOPHAGE PO SCH (08:32)
[2017-05-05] MEDS: NIFEREX 150 PO SCH (08:32)
[2017-05-05] MEDS: LOVENOX SUBCUT SCH (08:33)
[2017-05-05] MEDS ORDERED: DITROPAN PO SCH (09:00)
[2017-05-05] MEDS ORDERED: DITROPAN XL PO SCH (09:00)
[2017-05-05 09:30] VITALS: TEMP 97.8
[2017-05-05] MEDS: SODIUM CHLORIDE 1,000 ML IV SCH (12:21)
[2017-05-05 13:59] VITALS: BP 136/77
== END 2017-05-05 18:10 | disposition home or self-care (01) | DRG 641 ==
LOC: ED 10:28 → MEDSURG A 13:20
PROVIDERS: ADMIT Family Medicine; ATTEND Family Medicine
DX: E87.5 Hyperkalemia (principal); E87.1 Hypo-osmolality and hyponatremia; R79.1 Abnormal coagulation profile; R06.02 Shortness of breath; N28.89 Other specified disorders of kidney and ureter; R53.1 Weakness; E11.9 Type 2 diabetes mellitus without complications; I10 Essential (primary) hypertension; F17.200 Nicotine dependence, unspecified, uncomplicated; Z79.01 Long term (current) use of anticoagulants; Z79.84 Long term (current) use of oral hypoglycemic drugs; Z89.512 Acquired absence of left leg below knee; Z89.431 Acquired absence of right foot; Z86.718 Personal history of other venous thrombosis and embolism
CPT/HCPCS: 36415; 80053; 81001; 83605; 84145; 85025; 85610; 87040; 93005; 93010; 96360; 96361; 99284

== ENCOUNTER 2017-05-06 11:32 | Outpatient (CLI) | payer OTHER ==
[2017-05-06 11:58] LABS: ANION GAP 14.9; BUN/CREATININE RATIO 12.26; CREATININE 1.06 mg/dL (0.60-1.10); POTASSIUM 4.9 mmol/L (3.5-5.1)
[2017-05-06 12:04] LABS: PROTHROMBIN TIME 12.5 SEC (9.3-11.0)
== END 2017-05-06 11:33 | disposition home or self-care (01) ==
LOC: NONPT 11:32
PROVIDERS: ATTEND Family Medicine
DX: Z51.81 Encounter for therapeutic drug level monitoring (principal); Z79.01 Long term (current) use of anticoagulants; E87.5 Hyperkalemia; E11.621 Type 2 diabetes mellitus with foot ulcer; I10 Essential (primary) hypertension; J44.9 Chronic obstructive pulmonary disease, unspecified
CPT/HCPCS: 80048; 85610

== ENCOUNTER 2017-05-07 11:46 | Outpatient (CLI) | payer OTHER ==
[2017-05-07 12:08] LABS: ANION GAP 15.1; BUN/CREATININE RATIO 13.46; CALCIUM 9.4 mg/dL (8.2-10.2); CREATININE 1.04 mg/dL (0.60-1.10); POTASSIUM 5.1 mmol/L (3.5-5.1); PROTHROMBIN TIME 11.8 SEC (9.3-11.0)
== END 2017-05-07 11:47 | disposition home or self-care (01) ==
LOC: NONPT 11:46
PROVIDERS: ATTEND Family Medicine
DX: Z51.81 Encounter for therapeutic drug level monitoring (principal); Z79.01 Long term (current) use of anticoagulants; E87.5 Hyperkalemia; I10 Essential (primary) hypertension
CPT/HCPCS: 80048; 85610

== ENCOUNTER 2017-05-08 10:24 | Outpatient (CLI) | payer OTHER ==
[2017-05-08 10:37] LABS: PROTHROMBIN TIME 12.1 SEC (9.3-11.0)
[2017-05-08 10:44] LABS: ANION GAP 11.9; BUN/CREATININE RATIO 13.4; CALCIUM 8.8 mg/dL (8.2-10.2); CREATININE 0.97 mg/dL (0.60-1.10); POTASSIUM 4.9 mmol/L (3.5-5.1)
== END 2017-05-08 10:25 | disposition home or self-care (01) ==
LOC: NONPT 10:24
PROVIDERS: ATTEND Family Medicine
DX: Z51.81 Encounter for therapeutic drug level monitoring (principal); Z79.01 Long term (current) use of anticoagulants; E87.5 Hyperkalemia
CPT/HCPCS: 80048; 85610

== ENCOUNTER 2017-05-10 13:18 | Outpatient (CLI) | payer OTHER ==
[2017-05-10 13:40] LABS: PROTHROMBIN TIME 14.7 SEC (9.3-11.0)
[2017-05-10 13:48] LABS: ANION GAP 12.7; BUN/CREATININE RATIO 12.12; CALCIUM 8.4 mg/dL (8.2-10.2); CREATININE 0.99 mg/dL (0.60-1.10); POTASSIUM 4.7 mmol/L (3.5-5.1)
== END 2017-05-10 13:19 | disposition home or self-care (01) ==
LOC: NONPT 13:18
PROVIDERS: ATTEND Family Medicine
DX: Z51.81 Encounter for therapeutic drug level monitoring (principal); Z79.01 Long term (current) use of anticoagulants; E87.5 Hyperkalemia; E11.621 Type 2 diabetes mellitus with foot ulcer; I10 Essential (primary) hypertension
CPT/HCPCS: 80048; 85610

== ENCOUNTER 2017-05-11 15:26 | Outpatient (CLI) ==
[2017-05-11 15:59] LABS: PROTHROMBIN TIME 15.2 SEC (9.3-11.0)
== END 2017-05-11 15:27 | disposition home or self-care (01) ==
LOC: LAB 15:26
PROVIDERS: ATTEND Family Medicine
DX: Z51.81 Encounter for therapeutic drug level monitoring (principal); Z79.01 Long term (current) use of anticoagulants
CPT/HCPCS: 36415; 85610

== ENCOUNTER 2017-06-01 11:59 | Outpatient (CLI) | END 2017-06-01 12:00 | disposition home or self-care (01) | LOC: NONPT 11:59 | PROVIDERS: ATTEND Family Medicine | DX: Z51.81 Encounter for therapeutic drug level monitoring (principal); Z79.01 Long term (current) use of anticoagulants; E87.5 Hyperkalemia; E11.621 Type 2 diabetes mellitus with foot ulcer; Z79.84 Long term (current) use of oral hypoglycemic drugs; Z79.82 Long term (current) use of aspirin | CPT/HCPCS: 80053; 83540; 85027; 85610 ==

== ENCOUNTER 2017-06-15 17:49 | Outpatient (CLI) | payer OTHER | END 2017-06-15 17:50 | disposition home or self-care (01) | LOC: NONPT 17:49 | PROVIDERS: ATTEND Family Medicine | DX: Z51.81 Encounter for therapeutic drug level monitoring (principal); Z79.01 Long term (current) use of anticoagulants; E11.621 Type 2 diabetes mellitus with foot ulcer; E87.5 Hyperkalemia | CPT/HCPCS: 80048; 85610 ==

== ENCOUNTER 2017-06-20 13:24 | Outpatient (CLI) | END 2017-06-20 13:25 | disposition home or self-care (01) | LOC: NONPT 13:24 | PROVIDERS: ATTEND Family Medicine | DX: E87.5 Hyperkalemia (principal); E11.621 Type 2 diabetes mellitus with foot ulcer | CPT/HCPCS: 80048 ==

== ENCOUNTER 2017-08-12 11:39 | Outpatient (CLI) | END 2017-08-12 11:40 | disposition home or self-care (01) | LOC: NONPT 11:39 | PROVIDERS: ATTEND Family Medicine | DX: E11.51 Type 2 diabetes mellitus with diabetic peripheral angiopathy without gangrene (principal); L97.413 Non-pressure chronic ulcer of right heel and midfoot with necrosis of muscle | CPT/HCPCS: 85610 ==

== ENCOUNTER 2017-09-20 11:53 | Outpatient (CLI) | END 2017-09-20 11:54 | disposition home or self-care (01) | LOC: NONPT 11:53 | PROVIDERS: ATTEND Family Medicine | DX: Z51.81 Encounter for therapeutic drug level monitoring (principal); Z79.01 Long term (current) use of anticoagulants; E11.621 Type 2 diabetes mellitus with foot ulcer; L97.413 Non-pressure chronic ulcer of right heel and midfoot with necrosis of muscle | CPT/HCPCS: 85610 ==

== ENCOUNTER 2017-10-20 13:52 | Outpatient (CLI) | payer OTHER | END 2017-10-20 13:53 | disposition home or self-care (01) | LOC: NONPT 13:52 | PROVIDERS: ATTEND Family Medicine | DX: Z51.81 Encounter for therapeutic drug level monitoring (principal); Z79.01 Long term (current) use of anticoagulants; E11.621 Type 2 diabetes mellitus with foot ulcer; L97.413 Non-pressure chronic ulcer of right heel and midfoot with necrosis of muscle | CPT/HCPCS: 85610 ==

== ENCOUNTER 2017-11-07 13:30 | Outpatient (RCR) | END 2017-11-12 23:59 | LOC: NEWBEG 13:30 | PROVIDERS: ATTEND Psychiatry & Neurology Psychiatry | DX: F43.10 Post-traumatic stress disorder, unspecified (principal); F33.2 Major depressive disorder, recurrent severe without psychotic features; F41.9 Anxiety disorder, unspecified | CPT/HCPCS: 90792; 90837; 99214 ==

== ENCOUNTER 2017-11-11 15:42 | Outpatient (CLI) | END 2017-11-11 15:43 | disposition home or self-care (01) | LOC: NONPT 15:42 | PROVIDERS: ATTEND Family Medicine | DX: E11.621 Type 2 diabetes mellitus with foot ulcer (principal); J44.9 Chronic obstructive pulmonary disease, unspecified; Z51.81 Encounter for therapeutic drug level monitoring; Z79.899 Other long term (current) drug therapy | CPT/HCPCS: 80048 ==

== ENCOUNTER 2017-12-09 10:30 | Outpatient (RCR) | END 2017-12-13 23:59 | LOC: NEWBEG 10:30 | PROVIDERS: ATTEND Psychiatry & Neurology Psychiatry | DX: F33.2 Major depressive disorder, recurrent severe without psychotic features (principal); F41.9 Anxiety disorder, unspecified; F43.10 Post-traumatic stress disorder, unspecified | CPT/HCPCS: 90832; 90837; 99213 ==

== ENCOUNTER 2017-12-30 11:00 | Outpatient (RCR) | END 2018-01-13 23:59 | LOC: NEWBEG 11:00 | PROVIDERS: ATTEND Psychiatry & Neurology Psychiatry | DX: F33.2 Major depressive disorder, recurrent severe without psychotic features (principal); F41.9 Anxiety disorder, unspecified; F43.10 Post-traumatic stress disorder, unspecified | CPT/HCPCS: 99213 ==

== ENCOUNTER 2018-01-03 13:06 | Outpatient (CLI) | END 2018-01-03 13:07 | disposition home or self-care (01) | LOC: NONPT 13:06 | PROVIDERS: ATTEND Family Medicine | DX: Z51.81 Encounter for therapeutic drug level monitoring (principal); Z79.01 Long term (current) use of anticoagulants | CPT/HCPCS: 85610 ==

== ENCOUNTER 2018-01-12 10:50 | Outpatient (CLI) | END 2018-01-12 10:51 | disposition home or self-care (01) | LOC: NONPT 10:50 | PROVIDERS: ATTEND Family Medicine | DX: Z51.81 Encounter for therapeutic drug level monitoring (principal); Z79.01 Long term (current) use of anticoagulants | CPT/HCPCS: 85610 ==

== ENCOUNTER 2018-02-06 13:30 | Outpatient (RCR) | payer OTHER | END 2018-02-12 23:59 | LOC: NEWBEG 13:30 | PROVIDERS: ATTEND Psychiatry & Neurology Psychiatry | DX: F33.2 Major depressive disorder, recurrent severe without psychotic features (principal); F41.9 Anxiety disorder, unspecified; F43.10 Post-traumatic stress disorder, unspecified | CPT/HCPCS: 90832; 99213 ==

== ENCOUNTER 2018-02-16 10:30 | Outpatient (RCR) | END 2018-03-15 23:59 | LOC: NEWBEG 10:30 | PROVIDERS: ATTEND Psychiatry & Neurology Psychiatry | DX: F33.2 Major depressive disorder, recurrent severe without psychotic features (principal); F41.9 Anxiety disorder, unspecified; F43.10 Post-traumatic stress disorder, unspecified | CPT/HCPCS: 90832 ==

== ENCOUNTER 2018-10-06 14:10 | Outpatient (CLI) ==
--- NOTE | 2018-10-06 14:51 | DI ---
EXAM: Right foot three views HISTORY: Transmetatarsal amputation COMPARISON: None TECHNIQUE: Three views right foot were for FINDINGS/IMPRESSION: There has been prior transmetatarsal amputation. No acute fracture or dislocat ion. No definitive cortical destruction identified to suggest osteomyelitis. Skin irregularity abou t the amputation region can be correlated for wound or infectious process. Recommend correlation wit h physical examination. Moderate posterior calcaneal spurring.
== END 2018-10-06 14:11 | disposition home or self-care (01) ==
LOC: RAD 14:10
PROVIDERS: ATTEND Nurse Practitioner
DX: E11.621 Type 2 diabetes mellitus with foot ulcer (principal); T87.89 Other complications of amputation stump; Z72.0 Tobacco use